=== PATIENT | female | born 1950 | race Caucasian/White ===

== ENCOUNTER 2016-04-27 14:00 | Emergency (ER) | payer OTHER ==
[2016-04-27] MEDS ORDERED: VALIUM 10 MG/2 ML SYRINGE IV ONE (14:26)
[2016-04-27] MEDS ORDERED: Sodium Chloride 0.9% 1000 ML 1,000 ML IV SCH (14:30)
[2016-04-27 14:31] LABS: BASOPHIL % 0.3 % (0.0-0.4); Eosinophil % 1.2 % (0.00-5.0); Granulocytes % 70.4 % (36.0-66.0); Mean Cell Volume 90.6 fl (78-100); Mean Platelet Volume 10.2 fl (6-9.5); Monocytes % 6.1 % (0.0-12.0); Platelet Count 301 K/mm3 (150-450); Red Blood Count 4.57 M/mm3 (4.1-5.4); Red Cell Distribution Width 12.6 % (11.5-14.0); White Blood Count 9.3 K/mm3 (4.0-10.5)
[2016-04-27] MEDS ORDERED: VALIUM 10 MG/2 ML SYRINGE ONE (14:36)
[2016-04-27] MEDS ORDERED: Sodium Chloride 0.9% 1000 ML 1,000 ML ONE (14:36)
--- NOTE | 2016-04-27 14:40 | ERPHSYRPT ---
- History of Present Illness Time Seen by Provider: 04/27/16 14:07 Source: patient, EMS ([id number]) Patient Subjective Stated Complaint: DIZZINESS Triage Nursing Assessment: DIZZINESS SINCE LAST NIGHT. DENIES VOMITING OR DIARRHEA. DIZZINESS WORSE WITH CHANGE OF POSITION. NAUSEA EARLIER BUT NONE NOW. SEEN IN [facility]. PRSCRIPTION FILLED FOR ANTIVERT BUT 'DIZZINESS GOT WORSE WHEN I GOT HOME. SKIN WARM AND DRY. PUPILS SIMRAN Physician History: CC: dizziness hx: 65 y/o patient of Dr Granger with hx of DM. She has had some dizziness since last night. Sometimes nausea and spinning. Sometimes feels like will fall. No headache, numbness, tingling, or focal weakness. No fever or chills. She has no chest pain or dyspnea. Sometimes back pain. She reported increased urine frequency yesterday. She was seen at [facility] ER at 4AM and had negative CT brain, normal labs, treated with antivert. She took one antivert at 7AM. Called EMS to bring her back the hospital. Lives alone but has family and friends she can call for help. No tinnitus or hearing loss. No ear pain. Timing/Duration: yesterday Severity: mild Allergies/Adverse Reactions: levofloxacin [From Levaquin] Allergy (Mild, Verified 04/27/16 14:09) sickness Sulfa (Sulfonamide Antibiotics) Allergy (Mild, Verified 04/27/16 14:09) itchy morphine Allergy (Verified 04/27/16 14:09) itch/"crazy" cefuroxime axetil [From Ceftin] Adverse Reaction (Mild, Verified 04/27/16 14:09) makes her sick Cephalosporins Adverse Reaction (Mild, Verified 04/27/16 14:09) Nausea Home Medications: Amlodipine Besylate 5 mg [Norvasc 5 mg] 5 mg PO DAILY 06/10/13 [History] Citalopram Hydrobromide 20 mg* [ceLEXa 20 MG] 20 mg PO HS 06/10/13 [History] Clopidogrel Bisulfate 75 mg [PLAVIX 75 MG Tablet] 75 mg PO DAILY 06/10/13 [History] Fluticasone/Salmeterol Disc [Advair 250-50 Diskus 14 Dose] 1 dose IH BID 06/10/13 [History] Gemfibrozil [Lopid] 600 mg PO DAILY 06/10/13 [History] Lisinopril 5 mg [Zestril 5 MG] 5 mg PO DAILY 06/10/13 [History] Loratadine 10 mg [Claritin 10 mg] 10 mg PO DAILY 06/10/13 [History] Lorazepam 1 mg [Ativan 1 MG] 1 mg PO QIDPRN PRN 06/10/13 [History] Metoprolol Succinate 50 mg [Toprol Xl 50 MG] 25 mg PO DAILY 06/10/13 [ History] Prednisone 1 mg PO DAILY 06/10/13 [History] Calcium Carbonate/Vitamin D3 [Calcarb 600 W-Vitamin D Tab] 1 each PO BID [History] Meclizine HCl 25 mg [Antivert 25 mg] 25 mg PO TID 04/27/16 [History] Hx Tetanus, Diphtheria Vaccination/Date Given: Yes Hx Influenza Vaccination/Date Given: No Hx Pneumococcal Vaccination/Date Given: No Immunizations Up to Date: Yes - Review of Systems Constitutional: No Fever, No Chills Eyes: No Vision Changes Ears, Nose, & Throat: No Symptoms, No Ear Pain Respiratory: No Cough, No Dyspnea Cardiac: No Chest Pain, No Palpitations, No Syncope Abdominal/Gastrointestinal: Nausea (intermittent), No Abdominal Pain, No Vomiting, No Diarrhea Genitourinary Symptoms: Frequency, No Dysuria Skin: No Rash Neurological: No Focal Weakness, No Headache, No Parasthesia All Other Systems: Reviewed and Negative - Past Medical History Pertinent Past Medical History: Yes Neurological History: Stroke, TIA ENT History: No Pertinent History Cardiac History: Hypertension Respiratory History: Other Endocrine Medical History: No Pertinent History Musculoskeletal History: No Pertinent History GI Medical History: Diverticulitis, GERD History: No Pertinent History Psycho-Social History: Depression Female Reproductive Disorders: No Pertinent History Other Medical History: diverticulosis per scope pt states she may have had mini strokes in the past. - Past Surgical History Past Surgical History: Yes Neuro Surgical History: No Pertinent History Cardiac: No Pertinent History Respiratory: No Pertinent History Gastrointestinal: Cholecystectomy, Hernia Repair Genitourinary: No Pertinent History Musculoskeletal: No Pertinent History Female Surgical History: No Pertinent History - Social History Smoking Status: Never smoker How long have you smoked: 20 years Exposure to second hand smoke: No Drug Use: none Patient Lives Alone: Yes - Nursing Vital Signs Nursing Vital Signs: Initial Vital Signs Temperature 98.3 F Temperature Source Oral Pulse Rate 75 Respiratory Rate 16 Blood Pressure [Right Arm] 130/73 Pain Intensity 0 - Physical Exam General Appearance: alert Eye Exam: PERRL/EOMI (no nystagmus) Ears, Nose, Throat Exam: normal ENT inspection, moist mucous membranes, other ( ears appear normal. Some wax.) Neck Exam: normal inspection, non-tender, supple Respiratory Exam: normal breath sounds, lungs clear, No respiratory distress Cardiovascular Exam: regular rate/rhythm, No murmur Gastrointestinal/Abdomen Exam: soft, No tenderness, No distention Back Exam: normal inspection, normal range of motion Extremity Exam: normal inspection, normal range of motion Neurologic Exam: alert, oriented x 3, cooperative, senior treasury analyst II-XII nml as tested, nml cerebellar function (nl FTN and nl Heel to mcguire), sensation nml, No motor deficits Skin Exam: warm, dry, No rash SpO2 Interpretation: normal SpO2: 97 Oxygen Delivery: Room Air - Course Nursing assessment & vital signs reviewed: Yes EKG Interpreted by Me: RATE (83), Sinus Rhythm, NORMAL AXIS, NORMAL INTERVALS ( QTc 423), NORMAL QRS, NORMAL ST-T - Radiology Exams cxr X-ray Interpretation: Reviewed by me, Negative Ordered Tests: Active Orders 24 hr Category Date Time Status Computer Specialist STAT Care 04/27/16 14:26 Active Cath for Specimen-Straight STAT Care 04/27/16 14:26 Active EKG-ER Only STAT Care 04/27/16 14:26 Active IV Insertion STAT Care 04/27/16 14:26 Active Orthostatic Vital Signs STAT Care 04/27/16 14:26 Active CHEST 2 VIEWS (PA AND LAT) Stat Exams 04/27/16 14:26 Taken CBC W DIFF Stat Lab 04/27/16 14:20 Completed CMP Stat Lab 04/27/16 14:20 Completed Ethyl Alcohol,Urine Stat Lab 04/27/16 15:00 Completed UA W/ MICROSCOPIC Stat Lab 04/27/16 15:00 Completed Medication Summary Generic Name Dose Route Start Last Admin Trade Name Freq PRN Reason Stop Dose Admin Sodium Chloride 1,000 mls @ 100 mls/hr 04/27/16 14:30 04/27/16 14:54 Sodium Chloride 0.9% 1000 Ml IV 05/27/16 14:29 100 mls/hr .Q10H JASON Administration Discontinued Medications Generic Name Dose Route Start Last Admin Trade Name Armando PRN Reason Stop Dose Admin Diazepam 2.5 mg 04/27/16 14:26 04/27/16 14:53 Valium 10 Mg/2 Ml Syringe IV 04/27/16 14:27 2.5 mg STAT ONE Administration Diazepam Confirm 04/27/16 14:36 Valium 10 Mg/2 Ml Syringe Administered 04/27/16 14:37 Dose 10 mg .ROUTE .STK-MED ONE Sodium Chloride Confirm 04/27/16 14:36 Sodium Chloride 0.9% 1000 Ml Administered 04/27/16 14:37 Dose 1,000 mls @ ud .ROUTE .STK-MED ONE Lab/Rad Data: Laboratory Result Diagrams 04/27/16 14:20 04/27/16 14:20 Laboratory Results 04/27/16 04/27/16 04/27/16 Range/Units 15:00 15:00 14:20 WBC (4.0-10.5) K/mm3 RBC (4.1-5.4) M/mm3 Hgb (12.0-16.0) gm/dl Hct (35-47) % MCV (78-100) fl MCH (26-32) pg MCHC (32-36) g/dl RDW (11.5-14.0) % Plt Count (150-450) K/mm3 MPV (6-9.5) fl Gran % (36.0-66.0) % Lymphocytes % (24.0-44.0) % Monocytes % (0.0-12.0) % Eosinophils % (0.00-5.0) % Basophils % (0.0-0.4) % Basophils # (0-0.4) Sodium 144 (136-145) mEq/L Potassium 4.0 (3.5-5.1) mEq/L Chloride 108 H (98-107) mEq/L Carbon Dioxide 24.5 (21-32) mEq/L Anion Gap 15.9 H (5-15) MEQ/L BUN 14 (9-20) mg/dL Creatinine 0.89 (0.55-1.30) mg/dl Estimated GFR > 60 ML/MIN Glucose 136 H (70-110) MG/DL Calcium 9.1 (8.5-10.1) mg/dL Total Bilirubin 0.2 (0.2-1.0) mg/dL AST 15 (15-37) U/L ALT 25 (12-78) U/L Alkaline Phosphatase 67 (46-116) U/L Serum Total Protein 7.6 (6.4-8.2) gm/dL Albumin 3.8 (3.4-5.0) g/dL Ur Collection Type CATH Urine Color YELLOW (YELLOW) Urine Appearance CLEAR (CLEAR) Urine pH 7.0 7.0 (5-6) Ur Specific [place] 1.020 (1.005-1.025) Urine Protein 30 (Negative) Urine Glucose (UA) NEGATIVE (NEGATIVE) mg/dL Urine Ketones NEGATIVE (NEGATIVE) Urine Nitrite NEGATIVE (NEGATIVE) Urine Bilirubin NEGATIVE (NEGATIVE) Urine Urobilinogen 0.2 (0-1) mg/dL Urine WBC (Auto) NEGATIVE (NEGATIVE) Urine RBC (Auto) TRACE HEMOLYZED (0-5) Roland/ul Urine Microscopic RBC 2-5 (0-2) /HPF Urine Microscopic WBC 0-2 (0-5) /HPF Ur Epithelial Cells RARE (FEW) /HPF Urine Bacteria FEW (NEGATIVE) /HPF Urine Ethyl Alcohol 0 (0.00-20) mg/dl Specimen Received 04/27/16 1500 04/27/16 Range/Units 14:20 WBC 9.3 (4.0-10.5) K/mm3 RBC 4.57 (4.1-5.4) M/mm3 Hgb 13.7 (12.0-16.0) gm/dl Hct 41.4 (35-47) % MCV 90.6 (78-100) fl MCH 30.0 (26-32) pg MCHC 33.1 (32-36) g/dl RDW 12.6 (11.5-14.0) % Plt Count 301 (150-450) K/mm3 MPV 10.2 H (6-9.5) fl Gran % 70.4 H (36.0-66.0) % Lymphocytes % 22.0 L (24.0-44.0) % Monocytes % 6.1 (0.0-12.0) % Eosinophils % 1.2 (0.00-5.0) % Basophils % 0.3 (0.0-0.4) % Basophils # 0.03 (0-0.4) Sodium (136-145) mEq/L Potassium (3.5-5.1) mEq/L Chloride (98-107) mEq/L Carbon Dioxide (21-32) mEq/L Anion Gap (5-15) MEQ/L BUN (9-20) mg/dL Creatinine (0.55-1.30) mg/dl Estimated GFR ML/MIN Glucose (70-110) MG/DL Calcium (8.5-10.1) mg/dL Total Bilirubin (0.2-1.0) mg/dL AST (15-37) U/L ALT (12-78) U/L Alkaline Phosphatase (46-116) U/L Serum Total Protein (6.4-8.2) gm/dL Albumin (3.4-5.0) g/dL Ur Collection Type Urine Color (YELLOW) Urine Appearance (CLEAR) Urine pH (5-6) Ur Specific [place] (1.005-1.025) Urine Protein (Negative) Urine Glucose (UA) (NEGATIVE) mg/dL Urine Ketones (NEGATIVE) Urine Nitrite (NEGATIVE) Urine Bilirubin (NEGATIVE) Urine Urobilinogen (0-1) mg/dL Urine WBC (Auto) (NEGATIVE) Urine RBC (Auto) (0-5) Roland/ul Urine Microscopic RBC (0-2) /HPF Urine Microscopic WBC (0-5) /HPF Ur Epithelial Cells (FEW) /HPF Urine Bacteria (NEGATIVE) /HPF Urine Ethyl Alcohol (0.00-20) mg/dl Specimen Received - Progress Progress Note: 04/27/16 15:58 She [facility]. She ambulated in the hallway. She wants to hold onto nurse but appears steady. She turns well. No sign of gait problem. She has no focal neuro findings. No nystagmus. IVF and valium given here. She will go home. Advised follow up. Counseled pt/family regarding: lab results, diagnosis, need for follow-up, rad results - Departure Time of Disposition: 15:59 Departure Disposition: Home Clinical Impression: Dizziness Condition: Stable Critical Care Time: No Referrals: GEOVANY GRANGER MD [Primary Care Provider] - Instructions: Vertigo, Choose and Use a Walker, Choose and Use a Cane Additional Instructions: Take antivert every 6 hours as directed. Stay with family tonite. You need to use a walker or cane for gait stability. CAll Dr Granger Friday for office visit.
[2016-04-27 14:51] LABS: ALBUMIN 3.8 g/dL (3.4-5.0); ALKALINE PHOSPHATASE 67 U/L (46-116); ANION GAP 15.9 MEQ/L (5-15); BILIRUBIN,TOTAL 0.2 mg/dL (0.2-1.0); BLOOD UREA NITROGEN 14 mg/dL (9-20); CHLORIDE 108 mEq/L (98-107); Carbon Dioxide 24.5 mEq/L (21-32); Glucose 136 MG/DL (70-110); SGOT/AST 15 U/L (15-37); SGPT/ALT 25 U/L (12-78); SODIUM 144 mEq/L (136-145); Total Protein 7.6 gm/dL (6.4-8.2)
[2016-04-27 15:02] LABS: COMPLETE URINE MICROSCOPIC? YES; Collection Type CATH
[2016-04-27 15:11] LABS: Bacteria FEW /HPF (NEGATIVE); Epithelial Cells RARE /HPF (FEW); WBC 0-2 /HPF (0-5)
[2016-04-27 16:46] VITALS: BP 142/70; PULSE 70; O2SAT 99
--- NOTE | 2016-04-27 22:03 | XRAY ---
Indication: Dizziness. Comparison: None PA/lateral chest clear. Heart is not enlarged. Bony thorax intact with mild osteopenia and degenerative changes. Impression: Nonacute chest.
== END 2016-04-27 16:46 | disposition home or self-care (01) ==
LOC: ED 14:00
DX: R42 Dizziness and giddiness (principal); E11.9 Type 2 diabetes mellitus without complications; R11.0 Nausea; Z79.899 Other long term (current) drug therapy
CPT/HCPCS: 36000; 36415; 71020; 80053; 80320; 81000; 83986; 85025; 93005; 93041; 96360; 96361; 96374; 99284; J3360; P9612